=== PATIENT | male | born 1950 | race Caucasian/White ===

== ENCOUNTER → 2018-01-24 | Day surgery (SDC) | payer MEDICARE, OTHER, SELFPAY | END | disposition home or self-care (01) | PROVIDERS: PCP Family Medicine; Visit Provider Ophthalmology | DX: H25.11 Age-related nuclear cataract, right eye (principal); I10 Essential (primary) hypertension | CPT/HCPCS: 66984; J2704 ==

== ENCOUNTER → 2021-08-12 10:58 | Outpatient (CLI) | payer MEDICARE, OTHER, SELFPAY ==
[2021-08-12 19:43] LABS: Add Manual Diff / Slide Review NO; Basophils Absolute Auto 0 /uL (0-100); Basophils Percent Auto 0.6 % (0-2); Eosinophils Absolute Auto 200 /uL (0-450); Eosinophils Percent Auto 2.6 % (2-4); Hematocrit 47.5 % (41-53); Lymphocytes Absolute Auto 1900 /uL (1100-4500); Lymphocytes Percent Auto 26.9 % (25-40); Mean Corpuscular HGB Conc 33.6 % (30-36); Mean Corpuscular Hemoglobin 32.9 PG (26-34); Mean Corpuscular Volume 97.9 fL (80-100); Monocytes Absolute Auto 700 /uL (0-900); Monocytes Percent Auto 10.2 % (3-14); Neutrophils Absolute Auto 4200 /uL (1500-7000); Neutrophils Percent Auto 59.7 % (50-75); Platelet Count 202 X10^3/uL (150-400); Red Blood Cell Count 4.86 X10^6/uL (4.5-5.9); Red Cell Distribution Width 14.1 % (11.6-14.8); White Blood Cell Count 7.1 X10^3/uL (4.5-11.0)
[2021-08-12 19:47] LABS: Hemoglobin A1C% w Est Avg Glu 5.6 % (4.0-6.0)
[2021-08-12 19:51] LABS: Alanine Aminotransferase 46 IU/L (<50); Albumin 4.4 g/dL (3.5-5.0); Albumin Globulin Ratio 1.8 (1.0-2.8); Alkaline Phosphatase 82 U/L (38-126); Aspartate Aminotransferase 34 IU/L (17-59); BUN Creatinine Ratio 32.8 (6-22); Bilirubin Total 0.8 mg/dL (0.2-1.3); Blood Urea Nitrogen 21 mg/dL (9-20); Calcium 11.4 mg/dL (8.4-10.2); Carbon Dioxide 25 mmol/L (22-32); Chloride 106 mmol/L (98-107); Cholesterol 189 mg/dL (140-199); Estimated Glomerular Filt Rate > 60.0 mL/min (>60); Globulin 2.5 g/dL (1.7-4.1); Glucose 107 mg/dL (80-110); HDL Cholesterol 46 mg/dL (40-60); HEMOLYSIS 20 (0-50); LDL Cholesterol Calculated 117 mg/dL (<100); Potassium 4.7 mmol/L (3.4-5.1); Sodium 137 mmol/L (137-145); Total Protein 6.9 g/dL (6.3-8.2); Triglycerides 129 mg/dL (35-150)
[2021-08-12 20:14] LABS: Prostate Specific Antigen Scrn 3.13 ng/mL (0.1-4.0)
== END ==
PROVIDERS: PCP Physician Assistant; Visit Provider Physician Assistant
DX: I10 Essential (primary) hypertension (principal); Z12.5 Encounter for screening for malignant neoplasm of prostate; R35.0 Frequency of micturition; R03.0 Elevated blood-pressure reading, without diagnosis of hypertension; M25.561 Pain in right knee; G89.29 Other chronic pain
CPT/HCPCS: 80053; 80061; 83036; 85025; 87086; G0103

== ENCOUNTER → 2022-01-27 14:36 | Outpatient (CLI) | payer MEDICARE, OTHER, SELFPAY ==
[2022-01-27 19:11] LABS: Appearance Urine UA SL CLOUDY; Bilirubin Urine UA NEGATIVE (NEGATIVE); Color Urine UA YELLOW; Glucose Urine UA NEGATIVE (Negative); Ketones Urine UA NEGATIVE (NEGATIVE); Leukocyte Esterase Urine UA TRACE (NEGATIVE); Nitrite Urine UA POSITIVE (Negative); Occult Blood Urine UA TRACE-INTACT (Negative); Protein Urine UA TRACE (Negative); Specific Gravity Urine UA 1.015 (1.000-1.035); Urobilinogen Urine UA 0.2 E.U./dL (0.2)
[2022-01-27 19:27] LABS: Bacteria Urine Occasional (0-1); Culture Indicated Urine Specimen Cultured; Mucus Urine 1+ (Negative); RBC Urine 1-5/HPF (0-5/HPF); Squamous Epithelial Cell Urine 0-1 /HPF (0-5/HPF); WBC Urine 0-1/HPF (0-5/HPF)
[2022-02-03 09:35] LABS: Ca oxalate dihydrate 20 % (.); Hydroxyapatite 80 % (.); Size 4x4 mm (.)
== END ==
PROVIDERS: PCP Physician Assistant; Visit Provider Physician Assistant
DX: R31.9 Hematuria, unspecified (principal)
CPT/HCPCS: 81001; 82365; 87086

== ENCOUNTER → 2022-08-15 14:55 | Outpatient (CLI) | payer MEDICARE, OTHER, SELFPAY ==
[2022-08-15 19:29] LABS: Alanine Aminotransferase 40 IU/L (<50); Albumin 4.3 g/dL (3.5-5.0); Albumin Globulin Ratio 1.5 (1.0-2.8); Alkaline Phosphatase 90 U/L (38-126); Aspartate Aminotransferase 46 IU/L (17-59); BUN Creatinine Ratio 24.3 (6-22); Bilirubin Total 0.5 mg/dL (0.2-1.3); Blood Urea Nitrogen 17 mg/dL (9-20); Calcium 10.9 mg/dL (8.4-10.2); Carbon Dioxide 24 mmol/L (22-32); Chloride 106 mmol/L (98-107); Estimated Glomerular Filt Rate > 60 mL/min (>60); Globulin 2.8 g/dL (1.7-4.1); Glucose 90 mg/dL (80-110); HEMOLYSIS 16 (0-50); Potassium 4.2 mmol/L (3.4-5.1); Sodium 139 mmol/L (137-145); Total Protein 7.1 g/dL (6.3-8.2)
[2022-08-15 19:56] LABS: Prostate Specific Antigen Scrn 3.44 ng/mL (0.1-4.0); TSH w/ Reflex to FT4 3.74 uIU/mL (0.47-4.68)
[2022-08-18 10:09] LABS: Calcium 10.9 mg/dL (8.6-10.2); Parathyroid Hormone, Intact 133 pg/mL (15-65)
== END ==
PROVIDERS: PCP Physician Assistant; Visit Provider Physician Assistant
DX: Z12.5 Encounter for screening for malignant neoplasm of prostate (principal); E21.3 Hyperparathyroidism, unspecified; I10 Essential (primary) hypertension; E83.52 Hypercalcemia
CPT/HCPCS: 80053; 82306; 82310; 83970; 84443; G0103

== ENCOUNTER → 2023-02-09 13:06 | Outpatient (CLI) | payer MEDICARE, OTHER, SELFPAY ==
[2023-02-09 20:22] LABS: BUN Creatinine Ratio 29.6 (6-22); Blood Urea Nitrogen 21 mg/dL (9-20); Calcium 11.5 mg/dL (8.4-10.2); Carbon Dioxide 25 mmol/L (22-32); Chloride 104 mmol/L (98-107); Estimated Glomerular Filt Rate > 60 mL/min (>60); Glucose 87 mg/dL (80-110); Potassium 4.9 mmol/L (3.4-5.1); Sodium 136 mmol/L (137-145)
[2023-02-09 20:23] LABS: C-Reactive Protein Quant 0.7 mg/dL (<1.0)
[2023-02-09 20:38] LABS: HEMOLYSIS 52 (0-50)
[2023-02-09 20:57] LABS: Erythrocyte Sedimentation Rate 1 MM/HR (0-15)
[2023-02-14 17:53] LABS: ANA Screen, IFA Negative (.)
== END ==
PROVIDERS: PCP Physician Assistant; Visit Provider Family Medicine
DX: G89.29 Other chronic pain (principal); L40.9 Psoriasis, unspecified; M25.561 Pain in right knee; M25.562 Pain in left knee; M25.571 Pain in right ankle and joints of right foot; M25.572 Pain in left ankle and joints of left foot; E83.52 Hypercalcemia
CPT/HCPCS: 80048; 85651; 86038; 86140

== ENCOUNTER → 2024-09-04 06:18 | Outpatient (ROUT) | payer MEDICARE, OTHER, MEDICAID, SELFPAY ==
[2024-09-04 08:07] LABS: Hematocrit 44.8 % (41-53); Mean Corpuscular HGB Conc 33.6 % (30-36); Mean Corpuscular Hemoglobin 33.3 PG (26-34); Mean Corpuscular Volume 99.1 fL (80-100); Platelet Count 163 X10^3/uL (150-400); Red Blood Cell Count 4.52 X10^6/uL (4.5-5.9); Red Cell Distribution Width 13.2 % (11.6-14.8)
[2024-09-04 08:16] LABS: Alanine Aminotransferase 26 IU/L (<50); Albumin 3.6 g/dL (3.5-5.0); Albumin Globulin Ratio 1.7 (1.0-2.8); Alkaline Phosphatase 56 U/L (38-126); Aspartate Aminotransferase 25 IU/L (17-59); BUN Creatinine Ratio 29.1 (6-22); Bilirubin Total 0.7 mg/dL (0.2-1.3); Blood Urea Nitrogen 16 mg/dL (9-20); Calcium 11.1 mg/dL (8.4-10.2); Carbon Dioxide 25 mmol/L (22-32); Chloride 109 mmol/L (98-107); Estimated Glomerular Filt Rate > 60 mL/min (>60); Globulin 2.1 g/dL (1.7-4.1); Glucose 94 mg/dL (80-110); Potassium 4.8 mmol/L (3.4-5.1); Sodium 137 mmol/L (137-145); Total Protein 5.7 g/dL (6.3-8.2)
[2024-09-04 08:17] LABS: HEMOLYSIS 61 (0-50)
[2024-09-04 08:46] LABS: Prostate Specific Antigen 2.68 ng/mL (0.10-4.00)
[2024-09-04 09:21] LABS: Folate 9.3 ng/mL (2.76-20.0); Vitamin B12 291 pg/mL (239-931)
== END ==
PROVIDERS: PCP Family Medicine; Visit Provider Registered Nurse
DX: F10.26 Alcohol dependence with alcohol-induced persisting amnestic disorder (principal); E83.52 Hypercalcemia; I10 Essential (primary) hypertension; N40.0 Benign prostatic hyperplasia without lower urinary tract symptoms
CPT/HCPCS: 36415; 80053; 82607; 82746; 84153; 85027

== ENCOUNTER → 2024-10-25 19:43 | Outpatient (ROUT) | payer MEDICARE, OTHER, MEDICAID, SELFPAY ==
[2024-10-25 20:02] LABS: Appearance Urine UA SL CLOUDY; Bilirubin Urine UA NEGATIVE (NEGATIVE); Color Urine UA YELLOW; Glucose Urine UA NEGATIVE (Negative); Ketones Urine UA NEGATIVE (NEGATIVE); Leukocyte Esterase Urine UA NEGATIVE (NEGATIVE); Nitrite Urine UA NEGATIVE (Negative); Occult Blood Urine UA 3+ (Negative); Protein Urine UA TRACE (Negative); Specific Gravity Urine UA >=1.030 (1.000-1.035); Urobilinogen Urine UA 0.2 E.U./dL (0.2); pH Urine UA 5.5 (4.5-8.0)
[2024-10-25 20:08] LABS: Urine Volume 10mL (spun)
[2024-10-25 20:10] LABS: Bacteria Urine None Seen; Culture Indicated Urine Cult Not Indicated; RBC Urine 30-100/HPF (0-5/HPF); Squamous Epithelial Cell Urine None Seen (0-5/HPF); WBC Urine 1-5/HPF (0-5/HPF)
== END ==
PROVIDERS: PCP Family Medicine; Visit Provider Internal Medicine
DX: N39.0 Urinary tract infection, site not specified (principal)
CPT/HCPCS: 81001

== ENCOUNTER → 2025-01-22 06:06 | Outpatient (ROUT) | payer MEDICARE, OTHER, MEDICAID, SELFPAY ==
[2025-01-22 08:28] LABS: BUN Creatinine Ratio 22.4 (6-22); Blood Urea Nitrogen 15 mg/dL (9-20); Calcium 11.2 mg/dL (8.4-10.2); Carbon Dioxide 28 mmol/L (22-32); Chloride 106 mmol/L (98-107); Estimated Glomerular Filt Rate > 60 mL/min (>60); Glucose 91 mg/dL (70-99); HEMOLYSIS < 15 (0-50); Potassium 4.8 mmol/L (3.4-5.1); Sodium 137 mmol/L (137-145)
[2025-01-22 08:29] LABS: Hemoglobin A1C% w Est Avg Glu 5.1 % (4.0-6.0)
[2025-01-22 08:52] LABS: Prostate Specific Antigen 3.09 ng/mL (0.10-4.00)
== END ==
LOC: LAB 06:06
PROVIDERS: PCP Family Medicine; Visit Provider Registered Nurse
DX: N39.46 Mixed incontinence (principal)
CPT/HCPCS: 36415; 80048; 83036; 84153